=== PATIENT | male | born 1955 | race Caucasian/White ===

== ENCOUNTER 2022-09-10 09:03 | Emergency (ER) | payer OTHER, SELFPAY ==
[2022-09-10] VITALS (7 sets, daily range): BP systolic 101–123; BP diastolic 56–63; PULSE 54–66; RESP 14–18; TEMP 35.8; O2SAT 98–100; BMI 23.0
--- NOTE | 2022-09-10 09:05 | ED_ITS ---
HPI - General Adult General Chief complaint: Fall Stated complaint: fell backward down hill, hurt lower back Time Seen by Provider: 09/10/22 09:05 History of Present Illness HPI narrative: 66-year-old male nonsmoker with history of atrial fibrillation on anticoagulation presents with family for evaluation of a ground level fall resulting in an injury to his back. He states he was in his normal state of health and denies any prodromal symptoms such as dizziness, weakness or lightheadedness. [place] and stepped on something that gave way which caused him to fall back onto a tree branch that was about 3 in across. He states it was about 2 ft below him when he fell and he now has severe midline pain that is worse with motion and improves with rest. He denies any head or neck injury. He has full recall of the event. He is not dizzy nor weak or lightheaded. He denies chest pain or shortness of breath. He denies radiation into his lower extremities. He has no numbness, tingling or weakness, he denies any loss of control of bowel or bladder. Related Data Home Medications Medication Instructions Recorded Confirmed No Known Home Medications 03/17/20 03/17/20 Allergies Allergy/AdvReac Type Severity Reaction Status Date / Time cheese [CHEESE] Allergy Unknown ALLERGY TO Verified 09/10/22 09:08 AGED CHEESE peanut [PEANUT] Allergy Unknown Verified 09/10/22 09:08 Review of Systems Review of Systems Narrative: GENERAL: Denies chills, fatigue, malaise, fever, sweats. HEENT: Denies sinus pain, ear pain, sore throat, difficulty swallowing, dizziness. RESPIRATORY: Denies dyspnea, cough, wheezing, hemoptysis, sputum. CARDIOVASCULAR: Denies chest pain, palpitations, orthopnea, edema, GASTROINTESTINAL: Denies nausea, vomiting, abdominal pain, diarrhea, constipation, melena. : Denies dysuria, frequency, incontinence, hematuria, urinary retention. MUSCULOSKELETAL: See HPI SKIN: Denies rash, skin lesions, or other NEUROLOGIC: Denies weakness, headache, numbness, change in speech, confusion, seizures, incoordination. PSYCHIATRIC: No concerning psychosocial issues. 12 point review of systems is negative except for those stated above Patient History Medical History No significant medical problems Social History Smoking Status: Never smoker Smoking Status: Never smoker Exam Narrative Exam Narrative: GENERAL: [66] year old patient appears stated age. Well-developed patient, in mild distress. GCS 15, able to walk in under his own power though with a slow, purposeful in antalgic gait HEAD: Atraumatic. Normocephalic. EYES: Pupils equal round and reactive. Extraocular motions intact. No scleral icterus. No injection or drainage. ENT: Nose without bleeding, purulent drainage. Throat without erythema, tonsillar hypertrophy or exudate. Airway patent. NECK: Trachea midline. Non tender CARDIOVASCULAR: Regular rate and rhythm without murmurs, gallops, or rubs. RESPIRATORY: Clear to auscultation. Breath sounds equal bilaterally. No wheezes, rales, or rhonchi. GASTROINTESTINAL: Abdomen soft, non-tender, nondistended. EXTREMITIES: No edema or joint tenderness. BACK: Midline tenderness in upper lumbar, no obvious external manifestation, no bruising, hematoma abrasions or lacerations, no step-offs or crepitance, no saddle anesthesia, no lower extremity numbness or tingling NEURO: AOx3. SKIN: No rash or erythema of visible areas Initial Vital Signs Initial Vital Signs: Vital Signs Temperature 96.4 F L 09/10/22 09:08 Pulse Rate 62 09/10/22 09:08 Respiratory Rate 18 09/10/22 09:08 Blood Pressure 101/56 L 09/10/22 09:08 Pulse Oximetry 100 09/10/22 09:08 Oxygen Delivery Method Room Air 09/10/22 09:08 Course Orders Ordered: ED Orders 09/10/22 09:25 XR lumbar spine 2-3V Stat Vital Signs Vital signs: Vital Signs - 8 hr 09/10/22 09:08 09/10/22 09:15 09/10/22 09:15 Temperature 96.4 F L Pulse Rate 62 55 L Respiratory Rate 18 Blood Pressure 101/56 L 109/60 Pulse Oximetry 100 99 Oxygen Delivery Method Room Air 09/10/22 09:30 Temperature Pulse Rate 54 L Respiratory Rate Blood Pressure Pulse Oximetry 100 Oxygen Delivery Method Medical Decision Making Lab Data Labs: Urine Dip Bedside Urine Glucose Negative Bedside Urine Bilirubin - Negative Bedside Urine Ketone - Negative Urine Specific Porter 1.005 Bedside Urine Occult Blood - Negative Bedside Urine pH 9.0 Bedside Urine Protein +/- 15 Bedside Urine Urobilinogen - Negative Bedside Urine Nitrite - Negative Bedside Urine Leukocytes - Negative Esterase Point of care testing: Urine Dip Bedside Urine Glucose Negative Bedside Urine Bilirubin - Negative Bedside Urine Ketone - Negative Urine Specific Porter 1.005 Bedside Urine Occult Blood - Negative Bedside Urine pH 9.0 Bedside Urine Protein +/- 15 Bedside Urine Urobilinogen - Negative Bedside Urine Nitrite - Negative Bedside Urine Leukocytes - Negative Esterase MDM Narrative Medical decision making narrative: CC: 66-year-old male with ground level fall resulting in back pain Complicating co-morbidities: Age, anticoagulation Data collected from: Patient Medical records reviewed: Prior notes reviewed in our EMR Differential considered, but not limited to: Contusion versus hematoma versus fracture versus other Exam documented above, pertinent findings include: Awake, alert and oriented, obviously in pain but relatively comfortable when sitting still, midline tenderness without external manifestation of injury, no signs of cauda equina Imaging studies independently reviewed: L-spine x-ray demonstrates no fracture or dislocation Discussion: patient presents with low back pain after fall. He had no prodromal symptoms and states he fell purely because he stepped on something that gave way. His pain is pinpoint and in the midline. No evidence of fracture. Patient has a very reassuring exam, no external manifestation of injury, other diagnoses including consequence of internal bleeding secondary to the fall considered but thought extremely unlikely as he has no systemic complaints, no abdominal pain, no blood in his urine. We did have an extensive discussion at the bedside regarding return precautions. He understands and agrees with diagnosis and plan. Disposition: see below, along with detailed discharge instructions that have been reviewed with patient as well as indications for ED re-evaluation and additional outpatient follow up Discharge Plan Departure Patient Disposition: Home Clinical Impression: Back pain Instructions: How to Prevent Falls Activity Restrictions/Additional Instructions: *You have been diagnosed with [ Low back pain most likely due to contusion. As we discussed your history and physical exam are reassuring in the x-ray shows no evidence of fracture. ] *What to do: * Please consider the routine use of Tylenol (acetaminophen ) over the next 24-48 hours as well as the use of the [id number] lidocaine patches you already have. Otherwise. please continue to take your regular medications as directed. [ ] New medication prescriptions sent to your pharmacy: [ ] [ ] New medication written as a paper prescription [ ] No new medications given *Please follow up with your primary care provider in 2-3 days, call for an appointment. Let them know you were seen in the Emergency Department and that we ask that you be seen in follow up. We will electronically transmit a record of today's note if your PCP is in our system *If you do not have a primary care provider please contact the [facility] Resource line at [phone]. They will ask some questions about your medical history and help get you set up with a doctor in the community. *Return to Emergency Department if you should have any new, worsening or concerning symptoms, such as [fever greater than 101 F, shaking chills, worsening pain, persistent vomiting or other bothersome symptoms] Prescriptions: No Action No Known Home Medications Referrals: Miscellaneous,Doctor, MD [Non-Staff] - Stand Alone Forms: Patient Portal/API
--- NOTE | 2022-09-10 09:25 | DI.RAD.S_ITS ---
PROCEDURE: XR LUMBAR SPINE 2-3V INDICATIONS: fall TECHNIQUE: 3 views of the lumbar spine were acquired. COMPARISON: None. FINDINGS: Bones: 5 [id number] vertebrae are present. There is normal bony alignment. No vertebral body compression fractures. No suspicious bony lesions. Moderate fecal debris throughout the colon. Degenerative disc space narrowing present at the thoracolumbar junction. Soft tissues: Overlying bowel gas pattern is normal. No suspicious soft tissue calcifications. IMPRESSION: Degenerative changes without fracture or traumatic malalignment Moderate fecal debris throughout the colon Approved by: Dante Slaughter M.D. on 09/10/2022 at 9:24
== END 2022-09-10 10:51 | disposition home or self-care (01) ==
PROVIDERS: Emergency Provider Emergency Medicine
DX: S39.92XA Unspecified injury of lower back, initial encounter (principal); W18.30XA Fall on same level, unspecified, initial encounter
CPT/HCPCS: 72100; 81003; 99283; 99284